=== PATIENT | female | born 2000 | race Caucasian/White ===

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

== ENCOUNTER 2019-03-11 13:30 | Inpatient (IN) | payer OTHER, MEDICAID ==
[2019-03-11] VITALS (41 sets, daily range): BP systolic 108–184; BP diastolic 62–103
[~2019-03-11] VITALS: Ht 154.9 cm; Wt 69.9 kg
[~2019-03-11 13:30] MED LIST: PNV11TAB5 PO
--- NOTE | 2019-03-11 13:35 | NUR ---
JENNIFER MCCONNELL presented to unit via ambulation, accompanied by mother , for IOL. Pt. weighed, gowned, voided, and to bed. EFHM and TOCO applied, VS taken. Pt. oriented to bed controls, call light, TV, heat, and A/C controls.
--- OUTSIDE RECORDS SUMMARY | 2019-03-11 13:41 | XMS REPORT | Continuity of Care Document ---
Demographics Preferred Language Unknown Marital Status Unknown Oriental Orthodox Affiliation Unknown Race Unknown Ethnic Group Unknown Author Organization Unknown Address Unknown Allergies Active Description Code Type Severity Reaction Onset Reported/Identified Relationship to Patient Clinical Status Yes No Known Drug Allergies [id number] Drug Allergy Unknown N/A 12/20/2018 Medications There is no data. Problems Date Dx Coded Attending Type Code Diagnosis Diagnosed By 12/20/2018 BEAR HERNANDEZ MD Ot O26.892 OTH RELATED CONDITIONS, SECOND 12/20/2018 BEAR HERNANDEZ MD Ot R10.13 EPIGASTRIC PAIN 12/20/2018 BEAR HERNANDEZ MD Ot Z3A.26 26 WEEKS GESTATION OF Procedures There is no data. Results Test Result Range Complete urinalysis with reflex to culture - 12/20/18 11:27 Urine color determination YELLOW NRG Urine clarity determination CLEAR NRG Urine pH measurement by test strip 7.5 5-9 Specific gravity of urine by test strip < 1.016-1.022 Urine protein assay by test strip, semi-quantitative NEGATIVE NEGATIVE Urine glucose detection by automated test strip NEGATIVE NEGATIVE Erythrocytes detection in urine sediment by light microscopy NEGATIVE NEGATIVE Urine ketones detection by automated test strip NEGATIVE NEGATIVE Urine nitrite detection by test strip NEGATIVE NEGATIVE Urine total bilirubin detection by test strip NEGATIVE NEGATIVE Urine urobilinogen measurement by automated test strip (mass/volume) 0.2 mg/dL NORMAL Urine leukocyte esterase detection by dipstick 1+ NEGATIVE Automated urine sediment erythrocyte count by microscopy (number/high power field) NONE NRG Automated urine sediment leukocyte count by microscopy (number/high power field) [HPF] NRG Bacteria detection in urine sediment by light microscopy NONE NRG Squamous epithelial cells detection in urine sediment by light microscopy 25-50 NRG Crystals detection in urine sediment by light microscopy NONE NRG Casts detection in urine sediment by light microscopy NONE NRG Mucus detection in urine sediment by light microscopy NEGATIVE NRG Complete urinalysis with reflex to culture NO NRG Complete blood count (CBC) with automated white blood cell (WBC) differential - 12/20/18 11:54 Blood leukocytes automated count (number/volume) 8.2 10*3/uL 4.3-11.0 Blood erythrocytes automated count (number/volume) 3.32 10*6/uL 4.35-5.85 Venous blood hemoglobin measurement (mass/volume) 10.7 g/dL 11.5-16.0 Blood hematocrit (volume fraction) 32 % 35-52 Automated erythrocyte mean corpuscular volume 95 [foz_us] 80-99 Automated erythrocyte mean corpuscular hemoglobin (mass per erythrocyte) 32 pg 25-34 Automated erythrocyte mean corpuscular hemoglobin concentration measurement (mass/volume) 34 g/dL 32-36 Automated erythrocyte distribution width ratio 13.0 % 10.0- 14.5 Automated blood platelet count (count/volume) 225 10*3/uL 130-400 Automated blood platelet mean volume measurement 9.8 [foz_us] 7.4-10.4 Automated blood neutrophils/100 leukocytes 75 % 42-75 Automated blood lymphocytes/100 leukocytes 17 % 12-44 Blood monocytes/100 leukocytes 6 % 0-12 Automated blood eosinophils/100 leukocytes 1 % 0-10 Automated blood basophils/100 leukocytes 0 % 0-10 Blood neutrophils automated count (number/volume) 6.1 10*3 1.8-7.8 Blood lymphocytes automated count (number/volume) 1.4 10*3 1.0-4.0 Blood monocytes automated count (number/volume) 0.5 10*3 0.0- 1.0 Automated eosinophil count 0.1 10*3/uL 0.0-0.3 Automated blood basophil count (count/volume) 0.0 10*3/uL 0.0-0.1 Comprehensive metabolic panel - 12/20/18 11:54 Serum or plasma sodium measurement (moles/volume) 137 mmol/L 135-145 Serum or plasma potassium measurement (moles/volume) 3.6 mmol/L 3.6-5.0 Serum or plasma chloride measurement (moles/volume) 102 mmol/L 98-107 Carbon dioxide 14 mmol/L 21-32 Serum or plasma anion gap determination (moles/volume) 21 mmol/L 5-14 Serum or plasma urea nitrogen measurement (mass/volume) 5 mg/dL 7-18 Serum or plasma creatinine measurement (mass/volume) 0.59 mg/dL 0.60-1.30 Serum or plasma urea nitrogen/creatinine mass ratio 8 NRG Serum or plasma creatinine measurement with calculation of estimated glomerular filtration rate > NRG Serum or plasma glucose measurement (mass/volume) 125 mg/dL 70-105 Serum or plasma calcium measurement (mass/volume) 8.8 mg/dL 8.5-10.1 Serum or plasma total bilirubin measurement (mass/volume) 0.2 mg/dL 0.1-1.0 Serum or plasma alkaline phosphatase measurement (enzymatic activity/volume) 78 U/L 40-136 Serum or plasma aspartate aminotransferase measurement (enzymatic activity/volume) 14 U/L 5-34 Serum or plasma alanine aminotransferase measurement (enzymatic activity/volume) 10 U/L 0-55 Serum or plasma protein measurement (mass/volume) 6.4 g/dL 6.4-8.2 Serum or plasma albumin measurement (mass/volume) 3.5 g/dL 3.2-4.5 CALCIUM CORRECTED 9.2 mg/dL 8.5-10.1 Lipase - 12/20/18 11:54 Lipase 20 U/L 8-78 Microscopic examination by wet preparation - 12/20/18 12:36 WET PREP RESULTS NO YEAST OBSERVED NRG Chlamydia trachomatis DNA detection by probe and signal amplification method - 12/20/18 12:36 Chlamydia trachomatis DNA detection by probe and target amplification method TNP NRG Neisseria gonorrhoeae DNA detection by probe and signal amplification method - 12/20/18 12:36 Gonorrhea amp DNA-urine TNP NRG GLUCOSE CLIFF 1 HOUR - 12/23/18 13:15 GLUCOSE, POSTPRANDIAL/ 1 HOUR 139 mg/dL See Note: CBC - 12/23/18 13:15 WHITE BLOOD CELL COUNT 8.9 Thousand/uL 3.8-10.8 RED BLOOD CELL COUNT 3.61 Million/uL 3.80-5.10 HEMOGLOBIN 11.5 g/dL 11.7-15.5 HEMATOCRIT 34.3 % 35.0-45.0 MCV 95.0 fL 80.0-100.0 MCH 31.9 pg 27.0-33.0 MCHC 33.5 g/dL 32.0-36.0 RDW 12.2 % 11.0-15.0 PLATELET COUNT 229 Thousand/uL 140-400 MPV 10.6 fL 7.5-12.5 ABSOLUTE NEUTROPHILS 6666 cells/uL 4058-4906 ABSOLUTE LYMPHOCYTES 1549 cells/uL 850-3900 ABSOLUTE MONOCYTES 507 cells/uL 200-950 ABSOLUTE EOSINOPHILS 160 cells/uL 15-500 ABSOLUTE BASOPHILS 18 cells/uL 0-200 NEUTROPHILS 74.9 % NRG LYMPHOCYTES 17.4 % NRG MONOCYTES 5.7 % NRG EOSINOPHILS 1.8 % NRG BASOPHILS 0.2 % NRG CULTURE, GROUP B STREP WITH SUSCEPTIBILITY - 02/26/19 12:01 CULTURE, GROUP B STREP WITH SUSCEPTIBILITY SEE NOTE NRG Complete urinalysis with reflex to culture - 03/05/19 20:15 Urine color determination YELLOW NRG Urine clarity determination CLEAR NRG Urine pH measurement by test strip 7 5-9 Specific gravity of urine by test strip 1.005 1.016-1.022 Urine protein assay by test strip, semi-quantitative NEGATIVE NEGATIVE Urine glucose detection by automated test strip NEGATIVE NEGATIVE Erythrocytes detection in urine sediment by light microscopy NEGATIVE NEGATIVE Urine ketones detection by automated test strip NEGATIVE NEGATIVE Urine nitrite detection by test strip NEGATIVE NEGATIVE Urine total bilirubin detection by test strip NEGATIVE NEGATIVE Urine urobilinogen measurement by automated test strip (mass/volume) NORMAL NORMAL Urine leukocyte esterase detection by dipstick 1+ NEGATIVE Automated urine sediment erythrocyte count by microscopy (number/high power field) NONE NRG Automated urine sediment leukocyte count by microscopy (number/high power field) [HPF] NRG Bacteria detection in urine sediment by light microscopy TRACE NRG Squamous epithelial cells detection in urine sediment by light microscopy 10-25 NRG Crystals detection in urine sediment by light microscopy NONE NRG Casts detection in urine sediment by light microscopy NONE NRG Mucus detection in urine sediment by light microscopy NEGATIVE NRG Complete urinalysis with reflex to culture NO NRG Encounters ACCT No. Visit Date/Time Discharge Status Pt. Type Provider Facility Loc./Unit Complaint [id number] 10/06/2012 15:10:20 RECURRING [id number] 03/05/2019 20:06:00 03/05/2019 21:55:00 DIS Outpatient ALFONSO VASQUEZ DO [facility]So CONTRACTIONS [id number] 12/20/2018 11:20:00 12/20/2018 13:35:00 DIS Emergency DAVID SOLITARIO, BEAR Krishnan [facility] ER FS 26 WKS - ABD PAIN [id number] 03/03/2019 13:15:00 03/03/2019 23:59:59 CLS Out[facility] [id number] 02/26/2019 11:45:00 Document Registration [id number] 12/23/2018 12:15:00 Document Registration
[2019-03-11] MEDS ORDERED: CATHETER FLUSH 10 ML SYR IV SCH (14:00)
--- NOTE | 2019-03-11 14:00 | NUR ---
admission paperwork completed.
[2019-03-11] MEDS: D5 LR IV SOLUTION 1,000 ML IV SCH ×2 (14:24→20:35)
[2019-03-11 14:50] LABS: BASOPHILS % (AUTO) 0 % (0-10); EOSINOPHILS # (AUTO) 0.2 10^3/uL (0.0-0.3); EOSINOPHILS % (AUTO) 2 % (0-10); HEMATOCRIT 29 % (35-52); HEMOGLOBIN 9.6 G/DL (11.5-16.0); LYMPHOCYTES # (AUTO) 1.5 X 10^3 (1.0-4.0); LYMPHOCYTES % (AUTO) 18 % (12-44); MEAN CORPUSCULAR HEMOGLOBIN 29 PG (25-34); MEAN CORPUSCULAR HGB CONC 33 G/DL (32-36); MEAN CORPUSCULAR VOLUME 89 FL (80-99); MEAN PLATELET VOLUME 13.3 FL (7.4-10.4); MONOCYTES # (AUTO) 0.6 X 10^3 (0.0-1.0); MONOCYTES % (AUTO) 7 % (0-12); NEUTROPHILS % (AUTO) 73 % (42-75); PLATELET COUNT 137 10^3/uL (130-400); RED CELL DISTRIBUTION WIDTH 12.6 % (10.0-14.5); WHITE BLOOD COUNT 8.3 10^3/uL (4.3-11.0)
[2019-03-11] MEDS: OXYTOCIN/NORMAL SALINE 500 ML IV SCH (14:50)
--- NOTE | 2019-03-11 15:28 | NUR ---
called to check on pt's status. update given. no new orders received.
[2019-03-11] MEDS ORDERED: LACTATED RINGERS 1,000 ML IV ONE (17:09)
[2019-03-11] MEDS ORDERED: SUFENTA 0.6MCG/ML BUPIVA 0.125 100 ML ONE (17:09)
--- NOTE | 2019-03-11 17:20 | NUR ---
anesthesia notified of pt's request for epidural
[2019-03-11] MEDS ORDERED: fentaNYL INJECTION 100 MCG/2 ML AMP ONE (17:32)
--- NOTE | 2019-03-11 19:18 | NUR ---
report given to RODNEY Becerril.
--- NOTE | 2019-03-11 20:56 | History & Physical-OB ---
OB - Chief Complaint & HPI Date/Time Date of Admission: Date of Admission: Mar 11, 2019 at 13:30 Date seen by a Provider: Mar 11, 2019 Time Seen by a Provider: 19:45 Chief Complaint/History OB-Reason for Admission/Chief: Obstetrical Complication (advanced dilation with contractions) Hx : 1 Hx Para: 0 Gestational Age in Weeks: 38 Gestational Age in Days: 3 Allergies and Home Medications Allergies Coded Allergies: No Known Drug Allergies (Unverified , 12/20/18) Home Medications Mim304/FA/Omega3/Dha/Fish Oil 1 Each Tab.chew, 1 EACH PO DAILY, (Reported) Patient Home Medication List Home Medication List Reviewed: Yes OB - History Hx of Present Care: Yes Ultrasounds: Normal mid trimester US Obstetrical Complications: None Medical Complications: None Patient Past Medical History previously healthy Social History/Family History Alcohol Use: Denies Use Recreational Drug Use: No OB - Admission Exam Physical Exam Vitals: Vital Signs 03/11/19 03/11/19 13:45 19:00 Temp 98.7 Pulse 62 Resp 18 B/P (MAP) 130/93 (105) Pulse Ox 98 O2 Delivery Room Air HEENT: NCAT Heart: Rhythm Normal Lungs: Clear Abdomen: Gravid Extremities: Normal Reflexes: Normal Cervical Dilatation: 6cm Effacement: 100% Station: -1 Membranes: Ruptured Amniotic Fluid: Clear Heart Rate: 130's Accelerations: Accelerations Present Decelerations: No Decelerations Short Term Variability: Present Alf Variability: Average (6-25) Contractions on Admission: < 5 Minutes Apart Labs Laboratory Tests Test 03/11/19 14:23 Range/Units White Blood Count 8.3 4.3-11.0 10^3/uL Red Blood Count 3.27 L 4.35-5.85 10^6/uL Hemoglobin 9.6 L 11.5-16.0 G/DL Hematocrit 29 L 35-52 % Mean Corpuscular Volume 89 80-99 FL Mean Corpuscular Hemoglobin 29 25-34 PG Mean Corpuscular Hemoglobin Concent 33 32-36 G/DL Red Cell Distribution Width 12.6 10.0-14.5 % Platelet Count 137 130-400 10^3/uL Mean Platelet Volume 13.3 H 7.4-10.4 FL Neutrophils (%) (Auto) 73 42-75 % Lymphocytes (%) (Auto) 18 12-44 % Monocytes (%) (Auto) 7 0-12 % Eosinophils (%) (Auto) 2 0-10 % Basophils (%) (Auto) 0 0-10 % Neutrophils # (Auto) 6.0 1.8-7.8 X 10^3 Lymphocytes # (Auto) 1.5 1.0-4.0 X 10^3 Monocytes # (Auto) 0.6 0.0-1.0 X 10^3 Eosinophils # (Auto) 0.2 0.0-0.3 10^3/uL Basophils # (Auto) 0.0 0.0-0.1 10^3/uL OB - Assessment/Plan/Diagnosis Assessment Assessment: active labor, rupture of membranes Admission Dx Normal labor at 38 weeks 3 days Admission Status: Inpatient Order (span 2 midnights) Reason for Inpatient Admission: Labor. Plan Plan: Induction Induction Method: per Pitocin Protocol MUKESH PERAZA MD Mar 11, 2019 20:56
[2019-03-12] VITALS (12 sets, daily range): BP systolic 109–147; BP diastolic 67–91
[2019-03-12] MEDS ORDERED: LIDOCAINE/EPI 2% 1:200,00 (XYLOCAINE) 10 ML VIAL ONE (00:26)
[2019-03-12] MEDS ORDERED: MINERAL OIL CONCENTRATE 99.9% 15 ML UDC ONE (00:27)
[2019-03-12] MEDS ORDERED: MINERAL OIL CONCENTRATE 99.9% 15 ML UDC TOP ONE (00:30)
[2019-03-12] MEDS ORDERED: LIDOCAINE/EPI 2% 1:200,00 (XYLOCAINE) 10 ML VIAL INJ ONE (01:05)
[2019-03-12] MEDS ORDERED: OXYTOCIN/NORMAL SALINE 500 ML IV SCH (01:29)
--- NOTE | 2019-03-12 01:29 | OB Labor & Delivery Record ---
Vag Delivery Note Vag Delivery Note Date of Delivery: 03/12/19 Preoperative Diagnosis: Shannan Barrera is a (19 /Para 1 / 0, Gestational Age (wks)38with [4 days] Postoperative Diagnosis: Same Surgeon: MUKESH PERAZA Clerical Administrator: [] Anesthesia: [epidural] Delivery Type: [] Findings: [] Viable [male] , apgars [8/9], weight [8 pounds 1 ounces] Lacerations: Intact placenta with 3 vessel cord. No nuchal cord, body cord or shoulder dystocia Estimated Blood Loss: [250] ml Complications: None Condition: Stable Description of Procedure: The patient is a 19 year old female who presented [in labor]. She was admitted and informed consent was obtained. Her labor course was remarkable for [nothing] She progressed to complete dilatation and began to push. She was then set up for delivery. The infant's head was delivered atraumatically in the [OA] position. The shoulders and remainder of the 's body were then delivered without difficulty. Upon delivery, the head was held below the level of the perineum and the mouth and nares were bulb suctioned. The cord was doubly clamped and cut after 60 seconds on mother's abdomen. An intact placenta with 3-vessel cord delivered via Andressa and there was found to be minimal bleeding.~ Vigorous fundal massage was performed and the fundus was found to be firm. IV oxytocin was given. Examination of the vagina and perineum revealed a [2nd degree perineal] laceration repaired in the usual fashion with 3-0 vicryl suture. Following the repair, sponge, instrument and needle counts were correct. Mom and baby were both in stable condition in the labor suite. Vitals - Labs Vital Signs - I&O Vital Signs Date Time Temp Pulse Resp B/P (MAP) Pulse Ox O2 Delivery O2 Flow Rate FiO2 03/11/19 20:30 87 18 131/91 (104) 97 Room Air 03/11/19 20:15 88 18 131/87 (102) 98 Room Air 03/11/19 20:00 78 18 131/89 (103) 98 Room Air 03/11/19 19:45 71 18 124/88 (100) 98 Room Air 03/11/19 19:30 71 18 124/88 (100) 99 Room Air 03/11/19 19:15 68 18 128/87 (101) 98 Room Air 03/11/19 19:00 62 18 130/93 (105) 98 Room Air 03/11/19 18:40 80 18 122/81 (95) 99 Room Air 03/11/19 18:35 67 18 126/84 (98) 98 Room Air 03/11/19 18:30 67 18 126/84 (98) 98 Room Air 03/11/19 18:25 68 18 119/74 (89) 98 Room Air 03/11/19 18:20 66 18 110/68 (82) 98 Room Air 03/11/19 18:15 67 18 108/62 (77) 97 Room Air 03/11/19 18:10 70 18 114/64 (81) 100 Room Air 03/11/19 18:05 94 18 128/83 (98) 99 Room Air 03/11/19 18:00 66 18 139/91 (107) 99 Room Air 03/11/19 17:55 80 18 137/83 (101) 100 Room Air 03/11/19 17:50 65 18 150/85 (106) 100 Room Air 03/11/19 17:45 76 18 151/88 (109) 100 Room Air 03/11/19 17:40 133 18 100 Room Air 03/11/19 17:25 63 18 137/87 (104) Room Air 03/11/19 17:10 69 18 120/83 (95) Room Air 03/11/19 16:55 71 18 145/89 (107) Room Air 03/11/19 16:40 62 18 137/91 (106) Room Air 03/11/19 16:25 65 18 143/79 (100) Room Air 03/11/19 16:10 60 18 150/92 (111) Room Air 03/11/19 15:40 18 Room Air 03/11/19 15:25 18 Room Air 03/11/19 15:10 18 Room Air 03/11/19 14:55 75 18 118/77 (91) Room Air 03/11/19 13:45 98.7 79 18 114/81 (92) Room Air Labs Laboratory Tests 03/11/19 14:23: White Blood Count 8.3, Red Blood Count 3.27L, Hemoglobin 9.6L, Hematocrit 29L, Mean Corpuscular Volume 89, Mean Corpuscular Hemoglobin 29, Mean Corpuscular Hemoglobin Concent 33, Red Cell Distribution Width 12.6, Platelet Count 137, M brett Platelet Volume 13.3H, Neutrophils (%) (Auto) 73, Lymphocytes (%) (Auto) 18, Monocytes (%) (Auto) 7, Eosinophils (%) (Auto) 2, Basophils (%) (Auto) 0, Neutrophils # (Auto) 6.0, Lymphocytes # (Auto) 1.5, Monocytes # (Auto) 0.6, Eosinophils # (Auto) 0.2, Basophils # (Auto) 0.0 MUKESH PERAZA MD Mar 12, 2019 01:29
[2019-03-12] MEDS ORDERED: TETANUS,DIPTH,PERTUSS P/F (BOOSTRIX) 0.5 ML VIAL IM ONE (01:30)
[2019-03-12] MEDS ORDERED: WITCH HAZEL(TUCKS) 40 EA JAR TOP PRN (01:30)
[2019-03-12] MEDS ORDERED: BENZOCAINE/MENTHOL (DERMOPLAST) 56 ML CAN TP PRN (01:30)
[2019-03-12] MEDS ORDERED: MEASLES,MUMPS,RUBELLA 1 EA INJ SQ ONE (01:30)
[2019-03-12] MEDS: OXYTOCIN/NORMAL SALINE 500 ML IV SCH (01:45)
--- NOTE | 2019-03-12 04:15 | NUR ---
EPIDURAL D/C'D. PT TO W/C X2 ASSIST FOR SAFETY. TO BATHROOM TO VOID. PT ABLE TO VOID AFTER MODERATE EFFORT. PERICARE COMPLETED. LOCHIA MODERATE AT THIS TIME WITH ONE GOLF BALL SIZED DARK CLOT NOTED. WILL CONT TO MONITOR.
--- NOTE | 2019-03-12 04:20 | NUR ---
PT TRANSFERRED TO POST- ROOM AT THIS TIME.
[2019-03-12] MEDS ORDERED: CATHETER FLUSH 10 ML SYR IV SCH (06:00)
--- NOTE | 2019-03-12 06:30 | NUR ---
PT OFFERED ASSIST WITH . RELUCTANT TO SUCK. WILL TRY AGAIN LATER.
--- NOTE | 2019-03-12 08:43 | Anesthesia-Regional Post-Op ---
Regional Patient Condition Mental Status: Alert, Oriented x3 Circulation: Same as Pre-Op Headache: Absent Sensation: Full Recovery Motor Block: Absent Post Op Complications Complications None Follow Up Care/Instructions Patient Instructions None needed. Anesthesia/Patient Condition Patient is doing well, no complaints, stable vital signs, no apparent adverse anesthesia problems. No complications reported per nursing. D/C home per [facility] Criteria: Yes STEVE CABRERA CRNA Mar 12, 2019 08:43
--- NOTE | 2019-03-12 10:15 | NUR ---
Report from Lisa Oakes RN
[2019-03-12] MEDS: DOCUSATE SODIUM 100 MG (COLACE) CAP PO SCH ×2 (10:40→21:20)
[2019-03-12] MEDS: IBUPROFEN 600 MG (MOTRIN) TAB PO SCH ×2 (14:31→21:20)
[2019-03-12] MEDS: ACETAMINOPHEN 500 MG TAB (TYLENOL) PO SCH (21:00)
[2019-03-13] MEDS: IBUPROFEN 600 MG (MOTRIN) TAB PO SCH ×5 (01:45→21:21)
[2019-03-13 03:15] VITALS: BP 114/75
[2019-03-13 05:45] LABS: BASOPHILS % (AUTO) 0 % (0-10); EOSINOPHILS # (AUTO) 0.1 10^3/uL (0.0-0.3); EOSINOPHILS % (AUTO) 1 % (0-10); HEMATOCRIT 26 % (35-52); HEMOGLOBIN 8.6 G/DL (11.5-16.0); LYMPHOCYTES # (AUTO) 2.1 X 10^3 (1.0-4.0); LYMPHOCYTES % (AUTO) 22 % (12-44); MEAN CORPUSCULAR HEMOGLOBIN 29 PG (25-34); MEAN CORPUSCULAR HGB CONC 33 G/DL (32-36); MEAN CORPUSCULAR VOLUME 89 FL (80-99); MEAN PLATELET VOLUME 12.6 FL (7.4-10.4); MONOCYTES # (AUTO) 0.6 X 10^3 (0.0-1.0); MONOCYTES % (AUTO) 6 % (0-12); NEUTROPHILS # (AUTO) 6.7 X 10^3 (1.8-7.8); NEUTROPHILS % (AUTO) 70 % (42-75); PLATELET COUNT 124 10^3/uL (130-400); RED CELL DISTRIBUTION WIDTH 12.9 % (10.0-14.5); WHITE BLOOD COUNT 9.5 10^3/uL (4.3-11.0)
[2019-03-13] MEDS: ACETAMINOPHEN 500 MG TAB (TYLENOL) PO SCH ×2 (08:49→19:00)
[2019-03-13] MEDS: DOCUSATE SODIUM 100 MG (COLACE) CAP PO SCH ×2 (08:50→21:18)
[2019-03-13 08:52] VITALS: BP 113/70
--- NOTE | 2019-03-13 08:52 | NUR ---
initial shift assessment completed, see interventions for further. POC reviewed with pt and mother, verbalizes understanding.
[2019-03-13 15:27] VITALS: BP 120/74
--- NOTE | 2019-03-13 15:51 | Progress Note (SOAP) ---
Subjective Subjective/Events-last exam No acute events. Denies concerns. No dizziness, minimal pain, decreased bleeding, no shortness of breath or chest pain. Review of Systems Date Seen by Provider: Mar 13, 2019 Time Seen by Provider: 11:05 Objective Exam Last Set of Vital Signs Vital Signs Date Time Temp Pulse Resp B/P (MAP) Pulse Ox O2 Delivery O2 Flow Rate FiO2 03/13/19 15:27 97.8 69 18 120/74 (89) 96 Room Air Capillary Refill : I&O Intake and Output 03/13/19 00:00 Intake Total 1948 ml Balance 1948 ml Intake IV Total 1948 ml Results/Procedures Lab Laboratory Tests 03/13/19 05:20: White Blood Count 9.5, Red Blood Count 2.93L, Hemoglobin 8.6L, Hematocrit 26L, Mean Corpuscular Volume 89, Mean Corpuscular Hemoglobin 29, Mean Corpuscular Hemoglobin Concent 33, Red Cell Distribution Width 12.9, Platelet Count 124L, Mean Platelet Volume 12.6H, Neutrophils (%) (Auto) 70, Lymphocytes (%) (Auto) 22, Monocytes (%) (Auto) 6, Eosinophils (%) (Auto) 1, Basophils (%) (Auto) 0, Neutrophils # (Auto) 6.7, Lymphocytes # (Auto) 2.1, Monocytes # (Auto) 0.6, Eosinophils # (Auto) 0.1, Basophils # (Auto) 0.0 Clinical Quality Measures DVT/VTE Risk/Contraindication: Risk Factor Score Per Nursin RFS Level Per Nursing on Admit: 1=Low/No VTE PPX PAM RODRIGUEZ MD Mar 13, 2019 15:51
--- NOTE | 2019-03-13 18:47 | NUR ---
infant and family members remain @ side. no c/o's voiced.
--- NOTE | 2019-03-13 19:28 | NUR ---
report given to RODNEY Buck.
--- NOTE | 2019-03-13 20:26 | NUR ---
Pt up ambulating in room. Pt states she had BM and refuses colace.
[2019-03-13 21:00] VITALS: BP 125/77
[2019-03-14 04:00] VITALS: BP 102/67
[2019-03-14] MEDS: IBUPROFEN 600 MG (MOTRIN) TAB PO SCH (04:00)
[2019-03-14] MEDS: ACETAMINOPHEN 500 MG TAB (TYLENOL) PO SCH (04:34)
[2019-03-14] MEDS ORDERED: IBUP-844 PO (08:21)
[2019-03-14] MEDS ORDERED: FERR325T18 PO (08:21)
--- NOTE | 2019-03-14 08:24 | Discharge Instructions ---
Discharge Inst-Women's Serv Depart Medications New, Converted or Re-Newed RX: RX on Chart New Medications: Ferrous Sulfate (Ferrous Sulfate) 325 Mg Tablet 325 MG PO DAILY, #30 TAB 0 Refills Ibuprofen (Ibu) 600 Mg Tablet 600 MG PO Q6HR PRN for PAIN-MODERATE, #60 TAB 0 Refills Continued Medications: Bwv281/FA/Omega3/Dha/Fish Oil ( Gummies) 1 Each Tab.chew 1 EACH PO DAILY, TAB Follow Up/Instructions Goal/Follow Up: Follow up with Dr. Peraza for visit in 6 weeks. Activity Activity: Activity as Tolerated (avoid strenuous activity x 6 weeks) Diet Discharge Diet: No Restrictions Symptoms to Report to : Swelling Increased, Fever Over 101 Degrees F, Pain/Pressure in Chest, Vaginal Bleeding Increase, Cramps in Feet or Legs, Vaginal Discharge Foul, Dizziness/Fainting, Shortness of Breath For Any Problems or Questions: Contact Your Physician Copies To 1: MUKESH PERAZA MD, BETHANY N MD Mar 14, 2019 08:24
--- NOTE | 2019-03-14 08:24 | Discharge Summary ---
Diagnosis/Chief Complaint Date of Admission Mar 11, 2019 at 13:30 Date of Discharge March 14, 2019 Admission Diagnosis Admission Diagnosis Term intrauterine Spontaneous onset of labor 38 weeks gestation Discharge Diagnosis S/p spontaneous vaginal delivery asymptomatic anemia Chief Complaint/HPI Chief Complaint/HPI G1 at 38 weeks presented to labor and delivery in active labor. Discharge Summary-Simple/Stand Discharge Physical Examination Allergies: Coded Allergies: No Known Drug Allergies (Unverified , 12/20/18) Vitals & I&Os Vital Sign - Last 12Hours Date Time Temp Pulse Resp B/P (MAP) Pulse Ox O2 Delivery O2 Flow Rate FiO2 03/14/19 04:00 98.5 61 18 102/67 (79) 96 Room Air General Appearance: Alert, No Acute Distress Respiratory: Clear to Auscultation, Normal Air Movement Cardiovascular: Regular Rate, No Murmurs Neuro: Normal Gait, Normal Speech Psych/Mental Status: Mental Status NL Hospital Course Uncomplicated labor, delivery and course. Asymptomatic anemia, started on iron at d/c. Labs Laboratory Tests Test 03/13/19 05:20 Range/Units White Blood Count 9.5 4.3-11.0 10^3/uL Red Blood Count 2.93 L 4.35-5.85 10^6/uL Hemoglobin 8.6 L 11.5-16.0 G/DL Hematocrit 26 L 35-52 % Mean Corpuscular Volume 89 80-99 FL Mean Corpuscular Hemoglobin 29 25-34 PG Mean Corpuscular Hemoglobin Concent 33 32-36 G/DL Red Cell Distribution Width 12.9 10.0-14.5 % Platelet Count 124 L 130-400 10^3/uL Mean Platelet Volume 12.6 H 7.4-10.4 FL Neutrophils (%) (Auto) 70 42-75 % Lymphocytes (%) (Auto) 22 12-44 % Monocytes (%) (Auto) 6 0-12 % Eosinophils (%) (Auto) 1 0-10 % Basophils (%) (Auto) 0 0-10 % Neutrophils # (Auto) 6.7 1.8-7.8 X 10^3 Lymphocytes # (Auto) 2.1 1.0-4.0 X 10^3 Monocytes # (Auto) 0.6 0.0-1.0 X 10^3 Eosinophils # (Auto) 0.1 0.0-0.3 10^3/uL Basophils # (Auto) 0.0 0.0-0.1 10^3/uL Discharge Instructions to patient/family Please see electronic discharge instructions given to patient. Discharge Medications Reviewed and agree with Discharge Medication list on patient's Discharge Instruction sheet Clinical Quality Measures DVT/VTE Risk/Contraindication: Risk Factor Score Per Nursin RFS Level Per Nursing on Admit: 1=Low/No VTE PPX PAM RODRIGUEZ MD Mar 14, 2019 08:24
[2019-03-14 09:10] VITALS: BP 116/64
== END 2019-03-14 18:00 | disposition home or self-care (01) | DRG 807 ==
LOC: LDRP 13:30
PROVIDERS: ADMIT Family Medicine; ATTEND Family Medicine
PROC: 10E0XZZ Delivery of Products of Conception, External Approach (ICD-10-PCS; principal; 2019-03-11)
PROC: 0KQM0ZZ Repair Perineum Muscle, Open Approach (ICD-10-PCS; 2019-03-11)
DX: O70.1 Second degree perineal laceration during delivery (principal); O99.03 Anemia complicating the puerperium; D64.9 Anemia, unspecified; Z3A.38 38 weeks gestation of pregnancy; Z37.0 Single live birth
CPT/HCPCS: 36415; 85025; 86850; 86900; 86901